=== PATIENT | female | born 1955 | race Caucasian/White ===

== ENCOUNTER 2018-03-04 08:03 | Outpatient (CLI) | payer OTHER | END 2018-03-04 08:04 | disposition home or self-care (01) | LOC: BICRAD 08:03 | PROVIDERS: ATTEND Physician Assistant | DX: M25.561 Pain in right knee (principal); M17.11 Unilateral primary osteoarthritis, right knee ==

== ENCOUNTER 2018-03-14 08:58 | Outpatient (CLI) | payer OTHER | END 2018-03-14 08:59 | disposition home or self-care (01) | LOC: BICMAMMO 08:58 | PROVIDERS: ATTEND Family Medicine | DX: Z12.31 Encounter for screening mammogram for malignant neoplasm of breast (principal); Z80.3 Family history of malignant neoplasm of breast; R92.1 Mammographic calcification found on diagnostic imaging of breast | CPT/HCPCS: 77067 ==

== ENCOUNTER 2019-04-18 09:51 | Day surgery (SDC) | payer OTHER ==
[2019-04-17 12:07] VITALS: BMI 25.4
--- NOTE | 2019-04-18 13:32 | OP ---
DATE OF PROCEDURE: 04/18/2019 OPERATIVE PROCEDURES: Colonoscopy with polypectomy. PREOPERATIVE DIAGNOSES: A 64-year-old female undergoing colonoscopy for colon cancer screening. POSTOPERATIVE DIAGNOSES: 1. Large broad-based sessile polyp in sigmoid colon, status post snare cautery with good hemostasis. 2. Hemorrhoid. 3. Scattered diverticular disease predominantly left side. DESCRIPTION OF PROCEDURE: The patient was placed on her left lateral position and was given sedation by Anesthesia Department. The rectal exam was done before the scope was advanced into the rectum. No lesions felt on rectal exam. A Pentax videocolonoscope was introduced into the rectum and advanced all the way to the cecum. The prep was excellent. The mucosa appears normal throughout the colon. The appendiceal orifice, ileocecal wall, and cecum, no lesion seen. Withdrawal of scope from the cecum, ascending colon, hepatic flexure, no pathology seen. In the proximal transverse colon, no pathology. The distal transverse colon showed occasional diverticula. The splenic flexure, descending colon, no lesion seen except for a mild diverticula. The sigmoid colon shows scattered diverticula. There was a broad-based sessile polyp over the sigmoid colon seen. This was removed with snare cautery with good hemostasis. Rectal showed hemorrhoids. DISCHARGE PLANNING: This is a 64-year-old female came for colonoscopy for colon cancer screening. She underwent colonoscopy with large sessile broad-based polyp. DISCHARGE RECOMMENDATIONS: 1. The patient advised to call me, if she develops abdominal pain or hematochezia. 2. In the absence of any of the above symptoms, the patient will come back to me in 2 weeks. May consider repeat colonoscopy in one year because of broad-based sessile polyp. Depending on the biopsy report, I will make further recommendation. Job ID: [id number]
== END 2019-04-18 13:28 | disposition home or self-care (01) ==
LOC: SDC 09:51
PROVIDERS: ATTEND Internal Medicine Gastroenterology
PROC: 0DBN8ZZ Excision of Sigmoid Colon, Via Natural or Artificial Opening Endoscopic (ICD-10-PCS; principal; 2019-04-18)
DX: Z12.11 Encounter for screening for malignant neoplasm of colon (principal); D12.5 Benign neoplasm of sigmoid colon; K57.30 Diverticulosis of large intestine without perforation or abscess without bleeding; K64.9 Unspecified hemorrhoids; E03.9 Hypothyroidism, unspecified
CPT/HCPCS: 88305

== ENCOUNTER 2023-03-06 11:50 | Outpatient (CLI) | payer MEDICARE | END 2023-03-06 11:51 | disposition home or self-care (01) | LOC: BICMAMMO 11:50 | PROVIDERS: ATTEND Family Medicine | DX: Z12.31 Encounter for screening mammogram for malignant neoplasm of breast (principal) | CPT/HCPCS: 77063; 77067 ==

== ENCOUNTER 2023-05-18 11:49 | Outpatient (CLI) | payer MEDICARE ==
[2023-05-18 13:33] LABS: #Basophils 0.1 10x3/uL (0.0-0.2); #Eosinphils 0.2 10x3/uL (0.0-0.5); #Monocytes 0.4 10x3/uL (0.0-1.1); #Neutrophils 2.3 10x3/uL (1.5-8.4); %Eosinophils 4.6 % (0.0-6.0); %Monocytes 7.5 % (0.0-10.0); %Neutrophils 43.7 % (40.0-75.0); Hemoglobin 13.2 g/dL (12.0-15.5); Mean Corpuscular HGB CONC 32.7 g/dL (32.0-36.0); Mean Corpuscular Hemoglobin 29.5 pg (27.0-33.0); Mean Corpuscular Volume 90.4 fl (81.6-98.3); Mean Platelet Volume 9.2 fl (7.4-10.4); Platelet Count 250 10x3/uL (150-450); RBC Distribution Width 13.2 % (11.5-14.5); Red Blood Cell (RBC) Count 4.47 10x6/uL (3.90-5.03); White Blood Cell (WBC) Count 5.2 10x3/uL (3.5-10.5)
[2023-05-18 13:49] LABS: Prothrombin Time 10.5 sec (9.5-12.1)
[2023-05-18 13:52] LABS: Anion Gap 14 mmol/L (10-20); BUN (Urea Nitrogen) 17 mg/dL (9.8-20.1); Calc. Creatinine Clearance 0 mL/min (70-130); Calcium 8.2 mg/dL (7.8-10.44); Carbon Dioxide 22 mmol/L (23-31); Chloride 107 mmol/L (98-107); Estimated GFR 87; Glucose 90 mg/dL (80-115); Potassium 4.2 mmol/L (3.5-5.1); Sodium 139 mmol/L (136-145)
== END 2023-05-18 11:50 | disposition home or self-care (01) ==
LOC: LABBT 11:49
PROVIDERS: ATTEND Orthopaedic Surgery
DX: Z01.812 Encounter for preprocedural laboratory examination (principal); M17.12 Unilateral primary osteoarthritis, left knee
CPT/HCPCS: 80048; 85025; 85610; 87081; 93005; 93010

== ENCOUNTER 2023-05-22 05:38 | Observation (INO) | payer MEDICARE ==
[2023-05-18 12:33] VITALS: BMI 27.3
[2023-05-22] MEDS ORDERED: Sodium Chloride 0.9% 100 ML ONE ×2 (06:01→06:57)
[2023-05-22] MEDS ORDERED: Tranexamic Acid 1,000 MG/10 ML VIAL ONE (06:01)
[2023-05-22] MEDS ORDERED: Vancomycin 1 GM/200 ML (FROZEN) BAG ONE (06:01)
[2023-05-22] MEDS ORDERED: SUGAMMADEX SODIUM 200 MG/2 ML VIAL ONE (06:21)
[2023-05-22] MEDS ORDERED: fentaNYL PF 100 MCG/2 ML SYRINGE ONE (06:21)
[2023-05-22] MEDS ORDERED: Bupivacaine PF 0.5% 30 ML VIAL ONE (06:27)
[2023-05-22] MEDS ORDERED: Ropivacaine 0.5% HCl/PF (150 MG/30 ML VIAL) ONE (06:46)
[2023-05-22] MEDS ORDERED: fentaNYL 50 mcg/mL 1 mL Vial ONE ×2 (06:46→08:04)
[2023-05-22] MEDS ORDERED: Midazolam HCl 2 mg/2 ml Vial ONE (06:46)
[2023-05-22] MEDS ORDERED: CEFAZOLIN 2 GM VIAL ONE (06:57)
[2023-05-22] MEDS ORDERED: fentaNYL 50 mcg/mL 1 mL Vial SLOW IVP PRN (07:26)
[2023-05-22] MEDS ORDERED: diphenhydrAMINE 25 MG CAP PO PRN (07:26)
[2023-05-22] MEDS ORDERED: Promethazine HCl 25 MG/ML VIAL IM PRN (07:26)
[2023-05-22] MEDS ORDERED: HYDROcodone/Acetaminophen 10/325 mg Tablet PO PRN (07:26)
[2023-05-22] MEDS ORDERED: Ondansetron PF 4 MG/2 ML Vial IVP PRN (07:26)
[2023-05-22] MEDS ORDERED: Acetaminophen 325 MG TAB PO PRN (07:26)
[2023-05-22] MEDS ORDERED: Zolpidem Tartrate 5 MG TAB PO PRN (07:26)
[2023-05-22] MEDS ORDERED: PROPOFOL 200 MG/20 ML VIAL ONE (07:29)
[2023-05-22] MEDS ORDERED: ePHEDrine Sulfate 50 MG/10 ML VIAL ONE (07:29)
[2023-05-22] MEDS ORDERED: Lidocaine 1% PF 5 ML VIAL ONE (07:29)
[2023-05-22] MEDS ORDERED: traMADol HCl 50 MG TAB PO PRN ×2 (08:00)
[2023-05-22] MEDS ORDERED: Ropivacaine 0.2% 550 ML 550 ML NERVE BLCK SCH (08:00)
[2023-05-22] MEDS ORDERED: Multivitamin W/ Minerals 1 TAB PO SCH (09:00)
[2023-05-22] MEDS ORDERED: Aspirin Chewable 81 MG TAB PO SCH (09:00)
[2023-05-22] MEDS ORDERED: Aspirin 81 mg Enteric Coated Tablet PO SCH (09:00)
[2023-05-22] MEDS ORDERED: Ketorolac Tromethamine 30 MG/ML VIAL ONE (09:20)
[2023-05-22] MEDS: Senokot S 8.6-50 MG TAB PO SCH ×2 (11:30→20:45)
[2023-05-22] MEDS: Ferrous Gluconate 324 MG TAB PO SCH ×2 (11:30→20:45)
[2023-05-22] MEDS: Multivitamin W/ Minerals 1 TAB PO SCH (11:30)
[2023-05-22] MEDS: Sodium Chloride 0.9% 1,000 ML IV SCH ×2 (12:38→18:44)
[2023-05-22] MEDS: Ketorolac Tromethamine 30 MG/ML VIAL IVP SCH ×3 (13:32→23:54)
[2023-05-22] MEDS: CEFAZOLIN 2 GM in Sodium Chloride 0.9% 100 ML IVPB SCH ×2 (17:36→23:54)
[2023-05-22] MEDS: HYDROcodone/Acetaminophen 10/325 mg Tablet PO PRN ×2 (17:37→23:55)
[2023-05-22] MEDS: Aspirin 81 mg Enteric Coated Tablet PO SCH (20:45)
[2023-05-22] MEDS ORDERED: Rosuvastatin 20 MG TAB PO SCH (21:00)
[2023-05-23] MEDS: Sodium Chloride 0.9% 1,000 ML IV SCH (05:01)
[2023-05-23] MEDS: Ketorolac Tromethamine 30 MG/ML VIAL IVP SCH (05:26)
[2023-05-23 05:51] LABS: Hematocrit 34.5 % (36.0-47.0); Hemoglobin 11.4 g/dL (12.0-16.0); Mean Corpuscular Hemoglobin 30.4 pg (27.0-31.0); Mean Platelet Volume 9.3 fL (7.4-10.4); Platelet Count 190 10x3/uL (130-400); RBC Distribution Width 13.2 % (11.5-14.5); Red Blood Cell (RBC) Count 3.75 mill/uL (4.20-5.40); White Blood Cell (WBC) Count 7.4 10x3/uL (4.8-10.8)
[2023-05-23 07:57] VITALS: TEMP 98
[2023-05-23] MEDS: Aspirin 81 mg Enteric Coated Tablet PO SCH (08:29)
[2023-05-23] MEDS: Senokot S 8.6-50 MG TAB PO SCH (08:29)
[2023-05-23] MEDS: Multivitamin W/ Minerals 1 TAB PO SCH (08:29)
[2023-05-23] MEDS: HYDROcodone/Acetaminophen 10/325 mg Tablet PO PRN (08:30)
[2023-05-23] MEDS: Ferrous Gluconate 324 MG TAB PO SCH (08:30)
[2023-05-23 11:25] VITALS: BP 135/78
== END 2023-05-23 13:44 | disposition home or self-care (01) ==
LOC: SDC 05:38 → SURG A 10:32
PROVIDERS: ADMIT Orthopaedic Surgery; ATTEND Orthopaedic Surgery
PROC: 0SRD0JZ Replacement of Left Knee Joint with Synthetic Substitute, Open Approach (ICD-10-PCS; principal; 2023-05-22)
DX: M17.12 Unilateral primary osteoarthritis, left knee (principal); Z90.710 Acquired absence of both cervix and uterus; Z87.891 Personal history of nicotine dependence
CPT/HCPCS: 27447; 73560; 85027; 97110 ×2; 97116 ×2; 97530; A4306; C1776; J3010; J3370; 36415; J1885; J2250; J2704; J2795; J3490; S0020